=== PATIENT | female | born 1955 | race Caucasian/White ===

== ENCOUNTER 2020-08-16 11:03 | Outpatient (CLI) | payer MEDICARE ==
[2020-08-16 12:09] VITALS: BP 142/80
--- NOTE | 2020-08-16 12:09 | SLEEP CARE CONSULTATION ---
Information from patient questionnaire entered by Madison Tavera. I have reviewed and concur with the information entered by Madison Tavera. This document represents the service I personally performed and the decisions made by me, Priyanka Rich ARNP. History of Present Illness Service Date and Time: 08/16/2020 1103 Reason for Visit: New patient, Previously diagnosed sleep apnea, sleep apnea on CPAP therapy (BiPap) Chief Complaint: reports: Snoring, Observed pauses in breathing, Fatigue Date of Onset: more than 12 years, already have BiPap Usual bedtime: 11 pm Time it takes to fall asleep: 10-15 minutes Snores at night: Yes Observed to quit breathing while asleep: Yes Sleeps alone due to snoring: No Number of times waking at night: 1-2 Reasons for waking at night: reports: Bathroom, Other (unknown) Toss, Turn, or Twitch while sleeping: No Recalls having dreams: Yes Usually gets out of bed at: 7:30 - 8 am Feels refreshed in the morning: No Morning headache: No Sleepy or fatigued during the day: Yes (sometimes) Ever fallen asleep while driving: No Takes day naps: No Dreams during day naps: No Prior sleep studies: Yes Year and Where: 2004 or 2006 - [place] Additional HPI information: ARTEM GALLARDO was diagnosed to have severe, AHI 49, obstructive sleep apnea- hypopnea syndrome and returned today for BIPAP therapy to establish care. She last had a sleep study in [address] [facility]. - Parasomnia Symptoms Ever been unable to move upon waking from sleep: No Walks in sleep: Yes (only when little) Talks in sleep: Yes Ever acted out dreams in sleep: No Ever felt weak in the knees when startled or emotional: No Bothered by creepy, crawly, restless sensations in legs: No Problems with memory or concentration: No CPAP Compliance Data - Data Reviewed with Patient Average duration of nightly device use: 6 hours in last 30 days Current pressure setting (cmH2O): 20/10 (average 30 pressure 16/12 cm H2O); has max press support of 8 Average residual AHI: 2.0 (30 days) Average large leak: 30.7 Liters Compliance data discussion: Patient has been buying her supplies as needed since she lost her insurance after her job loss. She is using a nasal pillows mask. She last changed her mask over 6 months ago. Subjective Missed days of use due to: reports: travel Patient concerns: reports: aerophagia (everyday since machine has not been working right last 2 years), mask discomfort (nose can get sore from overtightening her headgear to keep mask fitting well), dry mouth, nose, throat (dry mouth due to mouthbreathing sometimes). denies: air blowing in eyes, mask leak noise, condensation in mask/hose, nasal congestion, epistaxis, other Observed to snore while using device: Yes Current pressure setting perceived as: too high On therapy, patient: reports: sleeping better, awakening more refreshed, being more awake and alert during the day, more rested overall. denies: drowsiness while driving Initial [place] Sleepiness Scale score: 2 (in 2019) Past Medical History Past Medical History: reports: Hypertension, Arthritis, Hypothyroidism, Anxiety, Other (high cholesterol, cutaneous Lupus). denies: Congestive Heart Failure, Diabetes, Coronary Heart Disease, Arrythmia, Anemia, Depression, GERD Social History The patient's occupation is a Retired. Patient is and lives in [place]. Have you smoked in the past 12 months: No Alcohol use: Yes Alcohol amount and frequency: 2-3 drinks 3 times a week Caffeine use: Yes Caffeine amount and frequency: 1-2 cups Family History Family history of sleep disordered breathing: No Allergies and Home Medications Drug allergies reviewed: Yes (penicillin) Home medication list reviewed: Yes Allergy and home medication list: Plaquenil Losartan potassium Hydrochlorothiazide Lipitor Levoxyl Venlafaxine Zyrtec Review of Systems Weight loss over past 5 years: 35 Cardiovascular: reports: high blood pressure. denies: irregular heart rate or pulse Respiratory: denies: shortness of breath Gastrointestinal: reports: heartburn. denies: difficulty swallowing Neurological: reports: gait or balance problems (balance). denies: headaches, seizure Psychiatric: reports: anxiety. denies: depression, claustrophobia Ear/Nose/Throat: reports: nasal congestion, sinus problems, wisdom teeth removed (only 1, still have 3) Endocrine: reports: thyroid disease Musculoskeletal: reports: joint pain Immunologic: reports: sneezing, itching, allergies to food or environment Physical Exam Blood Pressure: 142/80 Cuff size: long Heart Rate: 77 O2 Saturation: 100 Height: 5 ft 6.5 in Weight: 206 lb Body Mass Index: 32.7 BMI Classification: Obese Neck circumference: 15 (inches) Nostrils: patent to airflow Turbinates: swollen Septum: midline Mouth and throat: narrow oropharynx Uvula visualization: 50% Mallampati Class II Tongue: normal in size Tonsils: 2+ Heart: regular rate and rhythm Lungs: clear bilaterally Impression and Plan 1. Obstructive Sleep Apnea-Hypopnea Syndrome, severe, with unknown treatment compliance and unkown apnea control. On BIPAP therapy, the patient has better sleep quality and is more rested overall. BIPAP machine is too old to download c [employer] information but we were able to get a limited readout of last 30 days. Patient using machine on average 6 hours at average pressure 16/12 cm H2O with an average residual AHI of 2. Her pressure settings are at 20/10 cm H2O. The patients BIPAP is over 13 years old and of reasonable use. Thus, the BIPAP will be updated. A DWO prescription will be made. Compliance guidelines for new device and follow up discussed. Patient's apnea severity and rationale for treatment to reduce apnea, improve sleep quality and reduce cardiovascular and cerebrovascular events was reviewed. I also reviewed the benefit of consistent device use of CPAP for hypertension and anxiety. * Continue auto BIPAP pressure at 20-10 cmH2O * Notify me if snoring with mask or feeling that the pressure is too much or too little * Update BIPAP machine and supplies * Attempt to lose weight * Call this office if any problems using CPAP * Return for follow up one month after updating machine, or sooner if concerns arise Counseling Topics: Spare mask, Weight loss health impact Prescriptions: BiPAP, Device supplies Visit Type: In Office Time Spent with Patient (minutes): 42 Provider Statement: I spent 100% of the Face to Face Visit with the patient with greater than 50% spent counseling the patient and coordination of care.
== END 2020-08-16 11:04 | disposition home or self-care (01) ==
LOC: SC 11:03
PROVIDERS: ATTEND Nurse Practitioner Family
DX: G47.33 Obstructive sleep apnea (adult) (pediatric) (principal); E66.9 Obesity, unspecified; Z68.32 Body mass index [BMI] 32.0-32.9, adult
CPT/HCPCS: 99204; G0463; 99212

== ENCOUNTER 2020-10-16 13:49 | Outpatient (CLI) | payer MEDICARE ==
--- NOTE | 2020-10-16 14:24 | SLEEP CARE CONSULTATION ---
Information from patient questionnaire entered by Madison Tavera. I have reviewed and concur with the information entered by Madison Tavera. This document represents the service I personally performed and the decisions made by , Priyanka Rich ARNP. History of Present Illness Service Date and Time: 10/16/2020 1349 Previous diagnosis: Severe, Obstructive Sleep Apnea-Hypopnea Syndrome AHI: 49 (in 2006) Reason for follow up: first compliance after device update Equipment type: BiPAP Equipment obtained from: Other ([facility]; got initial supplies) Mask style: Nasal pillows Backup mask available: Yes (old mask) Prior sleep studies: Yes Year and Where: [address] [place] [address] Sleep HPI additional information: ARTEM GALLARDO was diagnosed to have severe, AHI 49, obstructive sleep apnea- hypopnea syndrome and returned today for BIPAP therapy first compliance after updating device follow-up. CPAP Compliance Data - Data Reviewed with Patient Average duration of nightly device use: 7 hr 16 min Compliance rate %: 87 Current pressure setting (cmH2O): 20/10 Humidity settin Average residual AHI: 20.9 Average large leak: 54.9 L/min Subjective Patient concerns: reports: mask discomfort, dry mouth, nose, throat, other (getting a message that she is not getting a good mask fit seal). denies: aerophagia, air blowing in eyes, mask leak noise, condensation in mask/hose, nasal congestion, epistaxis Observed to snore while using device: No Current pressure setting perceived as: comfortable On therapy, patient: reports: sleeping better, awakening more refreshed, being more awake and alert during the day, more rested overall. denies: drowsiness while driving Initial [place] Sleepiness Scale score: 2 (in 2019) Current [place] Sleepiness Scale score: 3 Allergies and Home Medications Drug allergies reviewed: Yes (penicillin) Home medication list reviewed: Yes (no changes) Review of Systems Review of systems same as previous: Yes (no changes) Physical Exam Heart Rate: 71 O2 Saturation: 99 Height: 5 ft 6.5 in Weight: 202 lb Body Mass Index: 32.1 BMI Classification: Obese Impression and Plan 1. Obstructive Sleep Apnea-Hypopnea Syndrome, severe, with good treatment compliance and poor apnea control. On BIPAP therapy, the patient has better sleep quality and is more rested overall. Patient is not getting a good seal on her mask despite efforts to tighten the headgear. After seeing the headgear on, it does not look like it is fitting well. She is having large leaks that may be skewing the AHI results. I will have her try another AirFit P30i nasal cushion mask to get a better fitting mask. I will not adjust her pressure until we get a better fit and less air leaking. She will follow up in 1-2 months. Patient's apnea severity and rationale for treatment to reduce apnea, improve sleep quality and reduce cardiovascular and cerebrovascular events was reviewed. I also reviewed the benefit of consistent device use of CPAP for hypertension and anxiety. Continue BiPAP pressure at 20/12 cm H2O. Try an AirFit P30i nasal cushion mask Notify me if snoring with the mask or feeling that the pressure is too much or too little. Attempt to lose weight. Return for follow-up in 1-2 months, or sooner if concerns arise. Counseling Topics: Spare mask, Weight loss health impact Visit Type: In Office Time Spent with Patient (minutes): 21 Provider Statement: I spent 100% of the Face to Face Visit with the patient with greater than 50% spent counseling the patient and coordination of care.
== END 2020-10-16 13:50 | disposition home or self-care (01) ==
LOC: SC 13:49
PROVIDERS: ATTEND Nurse Practitioner Family
DX: G47.33 Obstructive sleep apnea (adult) (pediatric) (principal); E66.9 Obesity, unspecified; Z68.32 Body mass index [BMI] 32.0-32.9, adult
CPT/HCPCS: 99213; G0463; 99212